=== PATIENT | male | born 1980 | race Caucasian/White ===

== ENCOUNTER 2018-03-03 15:40 | Emergency (ER) | payer OTHER | END 2018-03-03 18:07 | disposition left against medical advice (07) | LOC: FTE 15:40 | DX: S29.001A Unspecified injury of muscle and tendon of front wall of thorax, initial encounter (principal); S39.011A Strain of muscle, fascia and tendon of abdomen, initial encounter; X58.XXXA Exposure to other specified factors, initial encounter; Y92.9 Unspecified place or not applicable | CPT/HCPCS: 99283 ==

== ENCOUNTER 2018-03-04 18:30 | Emergency (ER) | payer OTHER | END 2018-03-04 21:05 | disposition home or self-care (01) | LOC: FTE 18:30 | DX: R07.81 Pleurodynia (principal); R05 Cough | CPT/HCPCS: 99283; Z7502 ==